=== PATIENT | female | born 1965 | race Caucasian/White ===

== ENCOUNTER 2019-10-09 15:11 | Emergency (ER) | payer BC ==
[~2019-10-09] VITALS: Ht 170.2 cm; Wt 114.5 kg
[~2019-10-09 15:11] MED LIST: CELEXA20 MG PO; NEXIUM20 MG PO; ULTRAM50 MG PO; VALIUM5 MG PO
[2019-10-09 15:28] VITALS: Ht 170.2 cm; Wt 114.5 kg
[2019-10-09] MEDS ORDERED: GLUCOPHAGE500 MG PO (15:30)
[2019-10-09] MEDS ORDERED: LISINOPRIL10 MG PO (15:31)
[2019-10-09] MEDS ORDERED: HYDROCHLOROTH12.5 M1 PO (15:31)
[2019-10-09 17:45] VITALS: BP 115/69
== END 2019-10-09 17:06 | disposition home or self-care (01) ==
LOC: D.ER 15:11
DX: S05.10XA Contusion of eyeball and orbital tissues, unspecified eye, initial encounter (principal); W10.9XXA Fall (on) (from) unspecified stairs and steps, initial encounter; I10 Essential (primary) hypertension; E11.9 Type 2 diabetes mellitus without complications